=== PATIENT | male | born 1970 | race Caucasian/White ===

== ENCOUNTER 2020-06-18 23:21 | Inpatient (IN) ==
[2020-06-19 00:42] LABS: Basophils # 0.1 10*3/uL (0.0-0.2); Basophils % 0.8 % (0.0-0.8); Eosinophils # 0.4 10*3/uL (0.0-0.87); Eosinophils % 3.3 % (0.00-10.9); Hematocrit 36.3 VOL% (42.0-52.0); Hemoglobin 12.5 GM/DL (14.0-18.0); Immature Granulocytes % 0.4 %; Immature Granulocytes Absolute 0.05 #; Lymphocytes # 3.1 10*3/uL (1.4-4.0); Lymphocytes % 26.3 % (21.2-54.2); Mean Corpuscular HGB Conc 34.4 GM/DL (32-36); Mean Corpuscular Volume 86.6 FL (87-102); Mean Platelet Volume 8.9 FL (9.6-12.0); Monocytes % 9.8 % (1.7-12.7); Neutrophils % 59.4 % (38.7-73.9); Platelet Count 382 T/CUMM (130-400); Red Blood Count 4.19 MC/CUMM (3.8-5.5); Red Cell Distribution Width 13.3 % (9.3-17.3); White Blood Count 11.7 T/CUMM (4-12)
[2020-06-19 00:54] LABS: PT Patient Result 11.3 SECS (9.8-11.9)
[2020-06-19 01:12] LABS: Alanine Aminotransferase 37 U/L (16-61); Albumin 3.7 G/DL (3.4-5.0); Alkaline Phosphatase 63 U/L (45-117); Aspartate Amino Transferase 31 U/L (0-37); Bilirubin,Total < 0.39 MG/DL (0.2-1.0); Blood Urea Nitrogen 7 MG/DL (7-18); Calcium 9.3 MG/DL (8.5-10.1); Carbon Dioxide 25 MMOL/L (21-32); Estimated Glom Filtration Rate 128 ML/MIN; Glucose 88 MG/DL (74-106); Osmolality,Calculated 260.5 MOS/KG (273-304); Potassium 3.8 MMOL/L (3.5-5.1); Sodium 132 MMOL/L (136-145); Total Protein 6.7 G/DL (6.4-8.2)
[2020-06-19] MEDS ORDERED: LEVOFLOXACIN INJ 500 MG/100 ML PREMIX IV STA (01:12)
[2020-06-19] MEDS ORDERED: methylPREDNISolone SOD SUC 125 MG/2 ML VIAL IV STA (01:12)
[2020-06-19] MEDS ORDERED: ALBUTEROL/IPRATROPIUM 3 ML NEB RESP TX STA (01:27)
[2020-06-19] MEDS ORDERED: hydrALAZINE 20 MG/1 ML VIAL IV STA (02:01)
[2020-06-19] MEDS ORDERED: ONDANSETRON 4 MG/2 ML VIAL IV PRN (02:01)
[2020-06-19] MEDS ORDERED: GLUCAGON 1 MG VIAL IM PRN (02:01)
[2020-06-19] MEDS ORDERED: ACETAMINOPHEN 325 MG TABLET PO PRN (02:01)
[2020-06-19] MEDS ORDERED: hydrALAZINE 20 MG/1 ML VIAL IV PRN (02:01)
[2020-06-19] MEDS ORDERED: DEXTROSE 50% 25 GM/50 ML VIAL IV PRN (02:01)
[2020-06-19] MEDS: SODIUM CHLORIDE 0.9% 1,000 ML IV SCH ×2 (04:13→21:55)
[2020-06-19] MEDS: ALBUTEROL/IPRATROPIUM 3 ML NEB RESP TX SCH ×3 (07:01→19:34)
[2020-06-19] MEDS: ENOXAPARIN 40 MG/0.4 ML SYRINGE SUBCUT SCH (09:08)
[2020-06-19] MEDS: methylPREDNISolone SOD SUC 40 MG/1 ML VIAL IV SCH (14:14)
[2020-06-20] MEDS: SODIUM CHLORIDE 0.9% 1,000 ML IV SCH ×2 (01:37→10:32)
[2020-06-20] MEDS: ALBUTEROL/IPRATROPIUM 3 ML NEB RESP TX SCH ×4 (02:08→20:02)
[2020-06-20] MEDS: LEVOFLOXACIN INJ 500 MG/100 ML PREMIX IV SCH (03:58)
[2020-06-20] MEDS: methylPREDNISolone SOD SUC 40 MG/1 ML VIAL IV SCH ×2 (04:31→21:02)
[2020-06-20] MEDS: ENOXAPARIN 40 MG/0.4 ML SYRINGE SUBCUT SCH (10:32)
[2020-06-20 13:04] LABS: HIV Antigen/Antibody Result Nonreactive (Nonreactive)
[2020-06-21] MEDS: SODIUM CHLORIDE 0.9% 1,000 ML IV SCH ×4 (00:01→09:31)
[2020-06-21] MEDS: ALBUTEROL/IPRATROPIUM 3 ML NEB RESP TX SCH ×4 (00:21→19:06)
[2020-06-21] MEDS: LEVOFLOXACIN INJ 500 MG/100 ML PREMIX IV SCH (02:08)
[2020-06-21 05:26] LABS: Basophils # 0.1 10*3/uL (0.0-0.2); Basophils % 0.2 % (0.0-0.8); Hemoglobin 12.1 GM/DL (14.0-18.0); Immature Granulocytes % 1.3 %; Immature Granulocytes Absolute 0.28 #; Lymphocytes # 0.9 10*3/uL (1.4-4.0); Lymphocytes % 4.1 % (21.2-54.2); Mean Corpuscular HGB Conc 32.7 GM/DL (32-36); Mean Corpuscular Volume 89.8 FL (87-102); Mean Platelet Volume 9.5 FL (9.6-12.0); Monocytes % 4.8 % (1.7-12.7); Neutrophils % 89.6 % (38.7-73.9); Platelet Count 417 T/CUMM (130-400); Red Blood Count 4.12 MC/CUMM (3.8-5.5); Red Cell Distribution Width 14.6 % (9.3-17.3)
[2020-06-21 05:45] LABS: Osmolality,Calculated 268.4 MOS/KG (273-304); Potassium 3.9 MMOL/L (3.5-5.1)
[2020-06-21 06:02] LABS: Hypochromasia 1+; Lymphocytes 5 % (20-55); Microcytosis 1+; Platelet Estimate Adequate; Segmented Neutrophils 90 % (50-85); Total Cells Counted 100
[2020-06-21] MEDS: methylPREDNISolone SOD SUC 40 MG/1 ML VIAL IV SCH ×3 (08:49→23:24)
[2020-06-21] MEDS: ENOXAPARIN 40 MG/0.4 ML SYRINGE SUBCUT SCH (08:49)
[2020-06-21] MEDS: FUROSEMIDE 40 MG/4 ML VIAL IV SCH (16:50)
[2020-06-21] MEDS: MAGNESIUM HYDROXIDE SUSP 30 ML UDCUP PO PRN (23:23)
[2020-06-22] MEDS: LEVOFLOXACIN INJ 500 MG/100 ML PREMIX IV SCH (01:44)
[2020-06-22] MEDS: ALBUTEROL/IPRATROPIUM 3 ML NEB RESP TX SCH ×4 (07:44→19:35)
[2020-06-22] MEDS: FUROSEMIDE 40 MG/4 ML VIAL IV SCH ×2 (08:27→16:51)
[2020-06-22] MEDS: ENOXAPARIN 40 MG/0.4 ML SYRINGE SUBCUT SCH (08:28)
[2020-06-22] MEDS: methylPREDNISolone SOD SUC 40 MG/1 ML VIAL IV SCH ×2 (08:28→16:51)
[2020-06-23] MEDS: methylPREDNISolone SOD SUC 40 MG/1 ML VIAL IV SCH ×4 (00:12→23:57)
[2020-06-23] MEDS: ALBUTEROL/IPRATROPIUM 3 ML NEB RESP TX SCH ×3 (01:20→14:07)
[2020-06-23] MEDS: LEVOFLOXACIN INJ 500 MG/100 ML PREMIX IV SCH (02:39)
[2020-06-23] MEDS: FUROSEMIDE 40 MG/4 ML VIAL IV SCH ×2 (09:18→15:59)
[2020-06-23] MEDS: ENOXAPARIN 40 MG/0.4 ML SYRINGE SUBCUT SCH (09:18)
[2020-06-23 09:31] LABS: Basophils # 0.1 10*3/uL (0.0-0.2); Basophils % 0.2 % (0.0-0.8); Hematocrit 40.2 VOL% (42.0-52.0); Hemoglobin 13.2 GM/DL (14.0-18.0); Immature Granulocytes % 2.5 %; Immature Granulocytes Absolute 0.56 #; Lymphocytes # 1.2 10*3/uL (1.4-4.0); Lymphocytes % 5.1 % (21.2-54.2); Mean Corpuscular HGB Conc 32.8 GM/DL (32-36); Mean Corpuscular Volume 89.9 FL (87-102); Mean Platelet Volume 9.4 FL (9.6-12.0); Monocytes % 5.7 % (1.7-12.7); Neutrophils % 86.5 % (38.7-73.9); Platelet Count 460 T/CUMM (130-400); Red Blood Count 4.47 MC/CUMM (3.8-5.5); Red Cell Distribution Width 14.4 % (9.3-17.3); White Blood Count 22.5 T/CUMM (4-12)
[2020-06-23 09:56] LABS: Calcium 8.9 MG/DL (8.5-10.1); Osmolality,Calculated 268.8 MOS/KG (273-304); Potassium 3.8 MMOL/L (3.5-5.1)
[2020-06-23 09:57] LABS: Lymphocytes 8 % (20-55); Platelet Estimate Adequate; Segmented Neutrophils 85 % (50-85); Total Cells Counted 100
[2020-06-23 09:58] LABS: Hypochromasia Slight; Microcytosis Slight
[2020-06-24] MEDS: LEVOFLOXACIN INJ 500 MG/100 ML PREMIX IV SCH (02:35)
[2020-06-24] MEDS: ARFORMOTEROL 15 MCG/2 ML NEB RESP TX SCH ×3 (07:42→20:54)
[2020-06-24] MEDS: BUDESONIDE 0.5 MG/2 ML NEB RESP TX SCH ×3 (07:42→21:02)
[2020-06-24] MEDS: ALBUTEROL/IPRATROPIUM 3 ML NEB RESP TX SCH ×4 (07:42→20:54)
[2020-06-24] MEDS: ENOXAPARIN 40 MG/0.4 ML SYRINGE SUBCUT SCH (08:08)
[2020-06-24] MEDS: FUROSEMIDE 40 MG/4 ML VIAL IV SCH ×2 (08:10→15:42)
[2020-06-24] MEDS: methylPREDNISolone SOD SUC 40 MG/1 ML VIAL IV SCH ×3 (08:12→23:44)
[2020-06-24] MEDS: MAGNESIUM HYDROXIDE SUSP 30 ML UDCUP PO PRN (09:49)
[2020-06-25] MEDS: LEVOFLOXACIN INJ 500 MG/100 ML PREMIX IV SCH (02:05)
[2020-06-25] MEDS: ALBUTEROL/IPRATROPIUM 3 ML NEB RESP TX SCH ×4 (02:37→19:23)
[2020-06-25] MEDS: ARFORMOTEROL 15 MCG/2 ML NEB RESP TX SCH ×2 (07:00→19:23)
[2020-06-25] MEDS: BUDESONIDE 0.5 MG/2 ML NEB RESP TX SCH ×2 (07:00→19:23)
[2020-06-25] MEDS: ENOXAPARIN 40 MG/0.4 ML SYRINGE SUBCUT SCH (12:54)
[2020-06-25] MEDS: FUROSEMIDE 40 MG/4 ML VIAL IV SCH ×2 (12:58→16:00)
[2020-06-25] MEDS: methylPREDNISolone SOD SUC 40 MG/1 ML VIAL IV SCH ×3 (13:01→23:37)
[2020-06-26] MEDS: ALBUTEROL/IPRATROPIUM 3 ML NEB RESP TX SCH ×3 (00:08→19:03)
[2020-06-26] MEDS: LEVOFLOXACIN INJ 500 MG/100 ML PREMIX IV SCH (01:54)
[2020-06-26 05:37] LABS: Basophils # 0.1 10*3/uL (0.0-0.2); Basophils % 0.5 % (0.0-0.8); Hematocrit 42.3 VOL% (42.0-52.0); Immature Granulocytes % 4.1 %; Immature Granulocytes Absolute 0.98 #; Lymphocytes # 1.1 10*3/uL (1.4-4.0); Lymphocytes % 4.5 % (21.2-54.2); Mean Corpuscular HGB Conc 33.1 GM/DL (32-36); Mean Corpuscular Volume 89.2 FL (87-102); Mean Platelet Volume 9.2 FL (9.6-12.0); Monocytes % 4.2 % (1.7-12.7); Neutrophils % 86.7 % (38.7-73.9); Platelet Count 452 T/CUMM (130-400); Red Blood Count 4.74 MC/CUMM (3.8-5.5); Red Cell Distribution Width 14.2 % (9.3-17.3); White Blood Count 24.1 T/CUMM (4-12)
[2020-06-26 05:59] LABS: Osmolality,Calculated 270.7 MOS/KG (273-304); Potassium 4.4 MMOL/L (3.5-5.1)
[2020-06-26 06:39] LABS: Anisocytosis 1+; Hypersegmented Neutrophil 2+; Lymphocytes 3 % (20-55); Macrocytosis 1+; Metamyelocytes 1 %; Platelet Estimate Increased; Segmented Neutrophils 91 % (50-85); Total Cells Counted 100
[2020-06-26] MEDS: ARFORMOTEROL 15 MCG/2 ML NEB RESP TX SCH ×2 (08:15→19:03)
[2020-06-26] MEDS: BUDESONIDE 0.5 MG/2 ML NEB RESP TX SCH ×2 (08:15→19:03)
[2020-06-26] MEDS: methylPREDNISolone SOD SUC 40 MG/1 ML VIAL IV SCH ×2 (10:12→15:53)
[2020-06-26] MEDS: FUROSEMIDE 40 MG/4 ML VIAL IV SCH (10:56)
[2020-06-26] MEDS: ENOXAPARIN 40 MG/0.4 ML SYRINGE SUBCUT SCH (10:56)
[2020-06-27] MEDS: methylPREDNISolone SOD SUC 40 MG/1 ML VIAL IV SCH ×4 (00:09→23:36)
[2020-06-27] MEDS: ALBUTEROL/IPRATROPIUM 3 ML NEB RESP TX SCH ×2 (01:27→07:35)
[2020-06-27] MEDS: LEVOFLOXACIN INJ 500 MG/100 ML PREMIX IV SCH (02:35)
[2020-06-27 07:10] LABS: Basophils % 0.1 % (0.0-0.8); Eosinophils # 0.6 10*3/uL (0.0-0.87); Eosinophils % 2.3 % (0.00-10.9); Hematocrit 43.9 VOL% (42.0-52.0); Hemoglobin 14.7 GM/DL (14.0-18.0); Immature Granulocytes % 5.4 %; Immature Granulocytes Absolute 1.34 #; Lymphocytes # 4.8 10*3/uL (1.4-4.0); Lymphocytes % 19.2 % (21.2-54.2); Mean Corpuscular HGB Conc 33.5 GM/DL (32-36); Mean Corpuscular Volume 88.2 FL (87-102); Mean Platelet Volume 8.9 FL (9.6-12.0); Monocytes % 10.3 % (1.7-12.7); Neutrophils % 62.7 % (38.7-73.9); Platelet Count 403 T/CUMM (130-400); Red Blood Count 4.98 MC/CUMM (3.8-5.5); Red Cell Distribution Width 14.4 % (9.3-17.3); White Blood Count 24.9 T/CUMM (4-12)
[2020-06-27 07:25] LABS: Osmolality,Calculated 267.4 MOS/KG (273-304); Potassium 4.1 MMOL/L (3.5-5.1)
[2020-06-27] MEDS ORDERED: MEPERIDINE 50 MG/1 ML VIAL IM ONE (07:30)
[2020-06-27] MEDS ORDERED: PROMETHAZINE 25 MG/1 ML VIAL IM ONE (07:30)
[2020-06-27] MEDS ORDERED: GLYCOPYRROLATE 0.4 MG/2 ML VIAL IM ONE (07:30)
[2020-06-27] MEDS: ARFORMOTEROL 15 MCG/2 ML NEB RESP TX SCH ×2 (07:35→19:43)
[2020-06-27] MEDS: BUDESONIDE 0.5 MG/2 ML NEB RESP TX SCH ×2 (07:35→19:50)
[2020-06-27 07:38] LABS: Eosinophils 4 % (0-10); Lymphocytes 21 % (20-55); Segmented Neutrophils 69 % (50-85); Total Cells Counted 100
[2020-06-27 07:39] LABS: Hypochromasia 1+
[2020-06-27 07:40] LABS: Microcytosis 1+; Platelet Estimate Increased
[2020-06-27] MEDS ORDERED: LIDOCAINE 2% VISCOUS 100 ML BOTTLE SWISH/SPIT ONE (08:00)
[2020-06-27] MEDS ORDERED: LIDOCAINE 2% 20 ML VIAL RESP TX ONE (08:00)
[2020-06-27] MEDS ORDERED: LIDOCAINE 1% 20 ML VIAL MISC INJ ONE (08:00)
[2020-06-27] MEDS ORDERED: MIDAZOLAM 2 MG/2 ML VIAL IV ONE (08:00)
[2020-06-28] MEDS: ARFORMOTEROL 15 MCG/2 ML NEB RESP TX SCH ×2 (07:14→19:31)
[2020-06-28] MEDS: BUDESONIDE 0.5 MG/2 ML NEB RESP TX SCH ×2 (07:14→19:31)
[2020-06-28] MEDS: methylPREDNISolone SOD SUC 40 MG/1 ML VIAL IV SCH ×3 (09:25→23:44)
[2020-06-28] MEDS ORDERED: MEROPENEM 500 MG in SODIUM CHLORIDE 0.9% 100 ML IV SCH (13:00)
[2020-06-28] MEDS ORDERED: MEROPENEM 1,000 MG in SODIUM CHLORIDE 0.9% 100 ML IV SCH (13:00)
[2020-06-28] MEDS: MEROPENEM 500 MG in SODIUM CHLORIDE 0.9% 100 ML IV SCH ×2 (14:58→20:36)
[2020-06-28] MEDS: IBUPROFEN 400 MG TABLET PO PRN ×2 (15:38→23:45)
[2020-06-28] MEDS: VANCOMYCIN INJ 1,500 MG in SODIUM CHLORIDE 0.9% 500 ML IV SCH (15:39)
[2020-06-28 16:11] LABS: Rheumatoid Factor < 15 IU/ML (<15)
[2020-06-28] MEDS: AZITHROMYCIN INJ 500 MG in SODIUM CHLORIDE 0.9% 250 ML IV SCH (18:02)
[2020-06-29] MEDS: MEROPENEM 500 MG in SODIUM CHLORIDE 0.9% 100 ML IV SCH ×4 (02:39→21:40)
[2020-06-29] MEDS: VANCOMYCIN INJ 1,500 MG in SODIUM CHLORIDE 0.9% 500 ML IV SCH ×2 (03:15→15:33)
[2020-06-29] MEDS: BUDESONIDE 0.5 MG/2 ML NEB RESP TX SCH ×2 (07:08→19:45)
[2020-06-29] MEDS: ARFORMOTEROL 15 MCG/2 ML NEB RESP TX SCH ×2 (07:08→19:45)
[2020-06-29] MEDS: ENOXAPARIN 40 MG/0.4 ML SYRINGE SUBCUT SCH (09:20)
[2020-06-29] MEDS: methylPREDNISolone SOD SUC 40 MG/1 ML VIAL IV SCH ×2 (09:20→17:52)
[2020-06-29 10:53] LABS: Basophils # 0.1 10*3/uL (0.0-0.2); Basophils % 0.4 % (0.0-0.8); Eosinophils # 0.1 10*3/uL (0.0-0.87); Eosinophils % 0.3 % (0.00-10.9); Hematocrit 41.3 VOL% (42.0-52.0); Hemoglobin 13.9 GM/DL (14.0-18.0); Immature Granulocytes % 3.1 %; Immature Granulocytes Absolute 0.98 #; Lymphocytes # 1.4 10*3/uL (1.4-4.0); Lymphocytes % 4.2 % (21.2-54.2); Mean Corpuscular HGB Conc 33.7 GM/DL (32-36); Mean Corpuscular Volume 87.5 FL (87-102); Monocytes % 5.8 % (1.7-12.7); Neutrophils % 86.2 % (38.7-73.9); Platelet Count 374 T/CUMM (130-400); Red Blood Count 4.72 MC/CUMM (3.8-5.5); Red Cell Distribution Width 14.3 % (9.3-17.3)
[2020-06-29 11:12] LABS: Calcium 8.4 MG/DL (8.5-10.1); Osmolality,Calculated 270.2 MOS/KG (273-304); Potassium 3.8 MMOL/L (3.5-5.1)
[2020-06-29 11:19] LABS: Hypochromasia 1+; Lymphocytes 8 % (20-55); Microcytosis 1+; Segmented Neutrophils 87 % (50-85); Total Cells Counted 100
[2020-06-29] MEDS: AZITHROMYCIN INJ 500 MG in SODIUM CHLORIDE 0.9% 250 ML IV SCH (17:52)
[2020-06-29] MEDS: MAGNESIUM HYDROXIDE SUSP 30 ML UDCUP PO PRN (17:56)
[2020-06-29] MEDS: IBUPROFEN 400 MG TABLET PO PRN (21:47)
[2020-06-30] MEDS: methylPREDNISolone SOD SUC 40 MG/1 ML VIAL IV SCH ×3 (00:10→20:35)
[2020-06-30] MEDS: MEROPENEM 500 MG in SODIUM CHLORIDE 0.9% 100 ML IV SCH ×4 (02:29→20:32)
[2020-06-30] MEDS: VANCOMYCIN INJ 1,500 MG in SODIUM CHLORIDE 0.9% 500 ML IV SCH ×2 (02:29→16:25)
[2020-06-30] MEDS: IBUPROFEN 400 MG TABLET PO PRN ×2 (04:15→22:10)
[2020-06-30 05:31] LABS: Basophils # 0.1 10*3/uL (0.0-0.2); Basophils % 0.3 % (0.0-0.8); Hematocrit 39.4 VOL% (42.0-52.0); Hemoglobin 12.9 GM/DL (14.0-18.0); Immature Granulocytes % 2.1 %; Immature Granulocytes Absolute 0.56 #; Lymphocytes # 1.2 10*3/uL (1.4-4.0); Lymphocytes % 4.5 % (21.2-54.2); Mean Corpuscular HGB Conc 32.7 GM/DL (32-36); Mean Corpuscular Volume 89.3 FL (87-102); Mean Platelet Volume 9.7 FL (9.6-12.0); Monocytes % 2.5 % (1.7-12.7); Neutrophils % 90.6 % (38.7-73.9); Platelet Count 366 T/CUMM (130-400); Red Blood Count 4.41 MC/CUMM (3.8-5.5); Red Cell Distribution Width 14.3 % (9.3-17.3); White Blood Count 26.7 T/CUMM (4-12)
[2020-06-30 05:48] LABS: Calcium 8.5 MG/DL (8.5-10.1); Potassium 4.6 MMOL/L (3.5-5.1)
[2020-06-30] MEDS: ARFORMOTEROL 15 MCG/2 ML NEB RESP TX SCH ×2 (07:13→19:04)
[2020-06-30] MEDS: BUDESONIDE 0.5 MG/2 ML NEB RESP TX SCH ×2 (07:13→19:04)
[2020-06-30 07:28] LABS: Lymphocytes 5 % (20-55); Metamyelocytes 1 %; Segmented Neutrophils 94 % (50-85); Total Cells Counted 100
[2020-06-30 07:29] LABS: Platelet Estimate Adequate
[2020-06-30] MEDS: ENOXAPARIN 40 MG/0.4 ML SYRINGE SUBCUT SCH (09:32)
[2020-06-30] MEDS: VANCOMYCIN INJ 1,250 MG in SODIUM CHLORIDE 0.9% 250 ML IV SCH (17:28)
[2020-06-30] MEDS: AZITHROMYCIN INJ 500 MG in SODIUM CHLORIDE 0.9% 250 ML IV SCH (18:52)
[2020-07-01] MEDS: VANCOMYCIN INJ 1,250 MG in SODIUM CHLORIDE 0.9% 250 ML IV SCH ×2 (01:15→10:20)
[2020-07-01] MEDS: MEROPENEM 500 MG in SODIUM CHLORIDE 0.9% 100 ML IV SCH ×3 (02:18→15:33)
[2020-07-01 06:20] LABS: Basophils # 0.1 10*3/uL (0.0-0.2); Basophils % 0.5 % (0.0-0.8); Eosinophils % 0.2 % (0.00-10.9); Hematocrit 40.8 VOL% (42.0-52.0); Hemoglobin 13.3 GM/DL (14.0-18.0); Immature Granulocytes Absolute 0.75 #; Lymphocytes # 1.9 10*3/uL (1.4-4.0); Lymphocytes % 7.4 % (21.2-54.2); Mean Corpuscular HGB Conc 32.6 GM/DL (32-36); Mean Corpuscular Volume 88.5 FL (87-102); Mean Platelet Volume 9.7 FL (9.6-12.0); Monocytes % 5.8 % (1.7-12.7); Neutrophils % 83.1 % (38.7-73.9); Platelet Count 339 T/CUMM (130-400); Red Blood Count 4.61 MC/CUMM (3.8-5.5); Red Cell Distribution Width 14.6 % (9.3-17.3); White Blood Count 25.1 T/CUMM (4-12)
[2020-07-01 06:49] LABS: Calcium 8.6 MG/DL (8.5-10.1); Potassium 4.6 MMOL/L (3.5-5.1)
[2020-07-01] MEDS: BUDESONIDE 0.5 MG/2 ML NEB RESP TX SCH ×2 (06:55→18:55)
[2020-07-01] MEDS: ARFORMOTEROL 15 MCG/2 ML NEB RESP TX SCH ×2 (06:55→18:55)
[2020-07-01 07:43] LABS: Anisocytosis Slight; Band Neutrophils 2 % (0-10); Lymphocytes 11 % (20-55); Platelet Estimate Normal; Segmented Neutrophils 82 % (50-85); Total Cells Counted 100
[2020-07-01 07:44] LABS: Macrocytosis Slight
[2020-07-01] MEDS: methylPREDNISolone SOD SUC 40 MG/1 ML VIAL IV SCH (09:30)
[2020-07-01] MEDS: ENOXAPARIN 40 MG/0.4 ML SYRINGE SUBCUT SCH (09:31)
[2020-07-01] MEDS: IBUPROFEN 400 MG TABLET PO PRN ×2 (15:32→22:21)
[2020-07-01] MEDS: AZITHROMYCIN INJ 500 MG in SODIUM CHLORIDE 0.9% 250 ML IV SCH (17:03)
[2020-07-02 03:17] LABS: Basophils # 0.1 10*3/uL (0.0-0.2); Basophils % 0.3 % (0.0-0.8); Eosinophils # 0.3 10*3/uL (0.0-0.87); Eosinophils % 1.1 % (0.00-10.9); Hematocrit 40.5 VOL% (42.0-52.0); Hemoglobin 13.2 GM/DL (14.0-18.0); Immature Granulocytes % 3.2 %; Immature Granulocytes Absolute 0.92 #; Lymphocytes # 4.6 10*3/uL (1.4-4.0); Lymphocytes % 15.7 % (21.2-54.2); Mean Corpuscular HGB Conc 32.6 GM/DL (32-36); Mean Corpuscular Volume 89.8 FL (87-102); Mean Platelet Volume 9.4 FL (9.6-12.0); Monocytes % 7.4 % (1.7-12.7); Neutrophils % 72.3 % (38.7-73.9); Platelet Count 303 T/CUMM (130-400); Red Blood Count 4.51 MC/CUMM (3.8-5.5); Red Cell Distribution Width 14.6 % (9.3-17.3); White Blood Count 29.2 T/CUMM (4-12)
[2020-07-02 03:23] LABS: Calcium 8.4 MG/DL (8.5-10.1); Osmolality,Calculated 277.7 MOS/KG (273-304); Potassium 5.3 MMOL/L (3.5-5.1)
[2020-07-02 04:10] LABS: Lymphocytes 20 % (20-55); Segmented Neutrophils 70 % (50-85); Total Cells Counted 100
[2020-07-02 04:11] LABS: Hypochromasia 1+; Microcytosis 1+; Platelet Estimate Normal
[2020-07-02 04:12] LABS: Atypical Lymphocytes Few
[2020-07-02] MEDS: BUDESONIDE 0.5 MG/2 ML NEB RESP TX SCH (07:05)
[2020-07-02] MEDS: ARFORMOTEROL 15 MCG/2 ML NEB RESP TX SCH (07:05)
[2020-07-02] MEDS ORDERED: LEVOFLOXACIN 750 MG TABLET PO SCH (09:00)
[2020-07-02] MEDS ORDERED: predniSONE 20 MG TABLET PO SCH (09:00)
[2020-07-02] MEDS: ENOXAPARIN 40 MG/0.4 ML SYRINGE SUBCUT SCH (10:20)
[2020-07-02] MEDS: IBUPROFEN 400 MG TABLET PO PRN (10:20)
[2020-07-02 12:52] VITALS: BP 131/94
== END 2020-07-02 16:05 | DRG 194 ==
LOC: N.ED 23:21 → N.EDINP 06-19 02:01 → SUATTDRO 06-19 02:01 → N.3W 06-19 02:26
PROVIDERS: ADMIT Internal Medicine Geriatric Medicine; ATTEND Internal Medicine
PROC: BRONCHB (2020-06-27 10:05)